=== PATIENT | female | born 1945 | race Caucasian/White ===

== ENCOUNTER → 2020-11-06 | Outpatient (CLI) | payer MEDICARE ==
--- NOTE | 2020-11-06 17:21 | US ---
EXAMINATION TYPE: US transvaginal DATE OF EXAM: 11/06/2020 COMPARISON: NONE CLINICAL HISTORY: 75-year-old female N95.0 postmenopausal bleeding. Pt states on/off vaginal bleeding , no bleeding past month TECHNIQUE: Transvaginal (TV) and Transabdominal (TA) . Transabdominal sonographic images of the pel vis were acquired. Transvaginal sonographic images were medically necessary to better assess the fol lowing anatomy: Entire pelvis Date of LMP: Age 51 FINDINGS: EXAM MEASUREMENTS: Uterus: 7.3 x 3.1 x 2.8 cm Endometrial Stripe: 1.9 cm Plant Operator Helper notes:Morbidly obese pt, limited visualization 1. Uterus: Anteverted with slightly heterogeneous myometrium 2. Endometrium: Prominently Thickened 3. Right Ovary: Surgically absent 4. Left Ovary: Obscured by overlying bowel gas 5. Bilateral Adnexa: wnl 6. Posterior cul-de-sac: wnl IMPRESSION: Prominently thickened myometrium up to 1.9 cm, abnormal in a postmenopausal female. Endometrial hyper plasia, polyps, and endometrial carcinoma are differential considerations. Recommend ROTARY SHEAR OPERATOR referral for further evaluation.
== END | disposition home or self-care (01) ==
LOC: RADUSWWP 12:58
PROVIDERS: ATTEND Family Medicine
DX: N85.8 Other specified noninflammatory disorders of uterus (principal)
CPT/HCPCS: 76830

== ENCOUNTER 2020-11-26 17:30 | Observation (INO) | payer MEDICARE ==
[2020-11-26] MEDS ORDERED: NITROGLYCERIN OINT 1 INCH/GM PACKET TOPICAL STA (18:00)
[2020-11-26] MEDS ORDERED: ASPIRIN 81 MG PO STA (18:00)
--- NOTE | 2020-11-26 18:03 | ED ---
General Adult HPI - General Chief complaint: Chest Pain Stated complaint: Coughing/sob/chest pain Time Seen by Provider: 11/26/20 17:30 Source: patient, family, RN notes reviewed, old records reviewed Mode of arrival: wheelchair Limitations: no limitations - History of Present Illness Initial comments: This is a 75-year-old female presents emergency department stating that for one week she's been feeling extremely tired and fatigued. Patient also states during that time she was having chest pain on and off. Patient describes the chest pain is a central heaviness in her chest. Patient denies any cough patient denies any recent fever but states she has had the chills she's had no exposure to COVID that she knows of. Patient denies any abdominal pain patient denies nausea vomiting diarrhea per patient denies any loss of taste or smell. Patient denies any dysuria hematuria urinary frequency. Patient states she has a little bit of shortness of breath. - Related Data Home Medications Medication Instructions Recorded Confirmed Ascorbic Acid [Vitamin C] 500 mg PO DAILY 11/26/20 11/26/20 Aspirin EC [Ecotrin Low Dose] 81 mg PO DAILY 11/26/20 11/26/20 Atorvastatin [Lipitor] 20 mg PO DAILY 11/26/20 11/26/20 Cetirizine HCl [Zyrtec] 10 mg PO DAILY 11/26/20 11/26/20 Cholecalciferol [Vitamin D3 (25 25 mcg PO DAILY 11/26/20 11/26/20 Mcg = 1000 Iu)] Cyanocobalamin (Vitamin B-12) 1,000 mcg PO DAILY 11/26/20 11/26/20 [Vitamin B-12] Famotidine [Pepcid] 40 mg PO DAILY 11/26/20 11/26/20 Laxative 5 mg PO DAILY PRN 11/26/20 11/26/20 Losartan/Hydrochlorothiazide 1 tab PO DAILY 11/26/20 11/26/20 [Losartan-Hctz 100-12.5 mg Tab] Omeprazole 40 mg PO BID 11/26/20 11/26/20 Venlafaxine HCl [Effexor] 75 mg PO DAILY 11/26/20 11/26/20 Vitamin E 400 unit PO DAILY 11/26/20 11/26/20 amLODIPine [Norvasc] 10 mg PO DAILY 11/26/20 11/26/20 glipiZIDE XL [Glucotrol Xl] 2.5 mg PO BID 11/26/20 11/26/20 sitaGLIPtin [Januvia] 100 mg PO DAILY 11/26/20 11/26/20 Allergies Allergy/AdvReac Type Severity Reaction Status Date / Time adhesive tape Allergy Rash/Hives Verified 11/26/20 18:37 Review of Systems ROS Statement: Those systems with pertinent positive or pertinent negative responses have been documented in the HPI. ROS Other: All systems not noted in ROS Statement are negative. Past Medical History Past Medical History: Diabetes Mellitus, Hypertension, Pneumonia, Renal Disease Additional Past Medical History / Comment(s): hernia History of Any Multi-Drug Resistant Organisms: None Reported Past Surgical History: Adenoidectomy, Cholecystectomy, Orthopedic Surgery, Tonsillectomy Additional Past Surgical History / Comment(s): Lap band, right ankle surgery. Past Psychological History: Anxiety Smoking Status: Never smoker Past Alcohol Use History: None Reported Past Drug Use History: None Reported General Exam - General Exam Comments Initial Comments: GENERAL: Patient is well-developed and well-nourished. Patient is nontoxic and well- hydrated and is in mild distress. ENT: Neck is soft and supple. No significant lymphadenopathy is noted. Oropharynx is clear. Moist mucous membranes. Neck has full range of motion without eliciting any pain. EYES: The sclera were anicteric and conjunctiva were pink and moist. Extraocular movements were intact and pupils were equal round and reactive to light. Eyelids were unremarkable. PULMONARY: Unlabored respirations. Good breath sounds bilaterally. No audible rales rhonchi or wheezing was noted. CARDIOVASCULAR: There is a regular rate and rhythm without any murmurs gallops or rubs. ABDOMEN: Soft and nontender with normal bowel sounds. SKIN: Skin is clear with no lesions or rashes and otherwise unremarkable. NEUROLOGIC: Patient is alert and oriented x3. Cranial nerves II through XII are grossly intact. Motor and sensory are also intact. Normal speech, volume and content. Symmetrical smile. MUSCULOSKELETAL: Normal extremities with adequate strength and full range of motion. No lower extremity swelling or edema. No calf tenderness. LYMPHATICS: No significant lymphadenopathy is noted PSYCHIATRIC: Normal psychiatric evaluation. Limitations: no limitations Course Vital Signs 11/26/20 17:32 Temperature 98.3 F Pulse Rate 78 Respiratory 18 Rate Blood Pressure 122/77 O2 Sat by Pulse 96 Oximetry Medical Decision Making - Medical Decision Making EKG shows normal sinus rhythm at 75 bpm SC interval 162 QRS is 82 QT interval 380 QTC is 424. Patient's EKG shows no ST segment elevation or depression. EKG shows normal sinus rhythm at 75 bpm SC interval is 162 QRS is 82 QT interval 380 QTC is 424. Patient's EKG shows no ST segment elevation or depression. Chest x-ray shows no acute abnormality. Urine showed potential urinary tract infection so I gave the patient a gram of Rocephin. Because the patient was complaining of chest pain I admitted the patient wrote admitting orders. I spoke with Dr. Ramirez he agreed to admission I consult cardiology continued the Rocephin. - Lab Data Result diagrams: 11/26/20 18:13 11/26/20 18:13 Lab Results 11/26/20 11/26/20 11/26/20 Range/Units 18:13 18:13 18:13 WBC 9.9 (3.8-10.6) k/uL RBC 4.63 (3.80-5.40) m/uL Hgb 14.0 (11.4-16.0) gm/dL Hct 41.6 (34.0-46.0) % MCV 90.0 (80.0-100.0) fL MCH 30.2 (25.0-35.0) pg MCHC 33.5 (31.0-37.0) g/dL RDW 14.0 (11.5-15.5) % Plt Count 280 (150-450) k/uL MPV 6.7 Neutrophils % 66 % Lymphocytes % 22 % Monocytes % 6 % Eosinophils % 3 % Basophils % 1 % Neutrophils # 6.5 (1.3-7.7) k/uL Lymphocytes # 2.2 (1.0-4.8) k/uL Monocytes # 0.6 (0-1.0) k/uL Eosinophils # 0.3 (0-0.7) k/uL Basophils # 0.1 (0-0.2) k/uL PT 10.4 (9.0-12.0) sec INR 1.0 (<1.2) APTT 21.5 L (22.0-30.0) sec Sodium 136 L (137-145) mmol/L Potassium 3.6 (3.5-5.1) mmol/L Chloride 96 L (98-107) mmol/L Carbon Dioxide 28 (22-30) mmol/L Anion Gap 12 mmol/L BUN 17 (7-17) mg/dL Creatinine 1.36 H (0.52-1.04) mg/dL Est GFR (CKD-EPI)AfAm 44 (>60 ml/min/1.73 sqM) Est GFR (CKD-EPI)NonAf 38 (>60 ml/min/1.73 sqM) Glucose 145 H (74-99) mg/dL Calcium 11.3 H (8.4-10.2) mg/dL Magnesium 1.3 L (1.6-2.3) mg/dL Total Bilirubin 0.6 (0.2-1.3) mg/dL AST 37 H (14-36) U/L ALT 37 H (4-34) U/L Alkaline Phosphatase 90 (38-126) U/L Troponin I (0.000-0.034) ng/mL Total Protein 7.2 (6.3-8.2) g/dL Albumin 4.3 (3.5-5.0) g/dL Urine Color Urine Appearance (Clear) Urine pH (5.0-8.0) Ur Specific [place] (1.001-1.035) Urine Protein (Negative) Urine Glucose (UA) (Negative) Urine Ketones (Negative) Urine Blood (Negative) Urine Nitrite (Negative) Urine Bilirubin (Negative) Urine Urobilinogen (<2.0) mg/dL Ur Leukocyte Esterase (Negative) Urine WBC (0-5) /hpf Ur Squamous Epith Cells (0-4) /hpf Urine Bacteria (None) /hpf Hyaline Casts (0-2) /lpf Urine Mucus (None) /hpf Coronavirus (PCR) (Not Detectd) 11/26/20 11/26/20 11/26/20 Range/Units 18:13 18:13 19:47 WBC (3.8-10.6) k/uL RBC (3.80-5.40) m/uL Hgb (11.4-16.0) gm/dL Hct (34.0-46.0) % MCV (80.0-100.0) fL MCH (25.0-35.0) pg MCHC (31.0-37.0) g/dL RDW (11.5-15.5) % Plt Count (150-450) k/uL MPV Neutrophils % % Lymphocytes % % Monocytes % % Eosinophils % % Basophils % % Neutrophils # (1.3-7.7) k/uL Lymphocytes # (1.0-4.8) k/uL Monocytes # (0-1.0) k/uL Eosinophils # (0-0.7) k/uL Basophils # (0-0.2) k/uL PT (9.0-12.0) sec INR (<1.2) APTT (22.0-30.0) sec Sodium (137-145) mmol/L Potassium (3.5-5.1) mmol/L Chloride (98-107) mmol/L Carbon Dioxide (22-30) mmol/L Anion Gap mmol/L BUN (7-17) mg/dL Creatinine (0.52-1.04) mg/dL Est GFR (CKD-EPI)AfAm (>60 ml/min/1.73 sqM) Est GFR (CKD-EPI)NonAf (>60 ml/min/1.73 sqM) Glucose (74-99) mg/dL Calcium (8.4-10.2) mg/dL Magnesium (1.6-2.3) mg/dL Total Bilirubin (0.2-1.3) mg/dL AST (14-36) U/L ALT (4-34) U/L Alkaline Phosphatase (38-126) U/L Troponin I <0.012 (0.000-0.034) ng/mL Total Protein (6.3-8.2) g/dL Albumin (3.5-5.0) g/dL Urine Color Yellow Urine Appearance Clear (Clear) Urine pH 6.5 (5.0-8.0) Ur Specific [place] 1.014 (1.001-1.035) Urine Protein Negative (Negative) Urine Glucose (UA) Negative (Negative) Urine Ketones Negative (Negative) Urine Blood Negative (Negative) Urine Nitrite Negative (Negative) Urine Bilirubin Negative (Negative) Urine Urobilinogen <2.0 (<2.0) mg/dL Ur Leukocyte Esterase Large H (Negative) Urine WBC 11 H (0-5) /hpf Ur Squamous Epith Cells 4 (0-4) /hpf Urine Bacteria Rare H (None) /hpf Hyaline Casts 11 H (0-2) /lpf Urine Mucus Rare H (None) /hpf Coronavirus (PCR) Not Detected (Not Detectd) Disposition Clinical Impression: Hypomagnesemia, Hypercalcemia, Chest pain, Urinary tract infection Disposition: ADMITTED IP TO THIS HOSP Referrals: Demetri Arteaga DO [Primary Care Provider] - 1-2 days Time of Disposition: 20:11
[2020-11-26 18:22] LABS: Basophils # (A) 0.1 k/uL (0-0.2); Basophils % (A) 1 %; Eosinophils # (A) 0.3 k/uL (0-0.7); Eosinophils % (A) 3 %; HCT 41.6 % (34.0-46.0); Lymphocytes # (A) 2.2 k/uL (1.0-4.8); Lymphocytes % (A) 22 %; MCH 30.2 pg (25.0-35.0); MCHC 33.5 g/dL (31.0-37.0); Mean Platelet Volume 6.7; Monocytes # (A) 0.6 k/uL (0-1.0); Monocytes % (A) 6 %; Neutrophils # (A) 6.5 k/uL (1.3-7.7); Neutrophils % (A) 66 %; Platelet Count 280 k/uL (150-450); RBC 4.63 m/uL (3.80-5.40); WBC 9.9 k/uL (3.8-10.6)
[2020-11-26 18:30] LABS: Albumin 4.3 g/dL (3.5-5.0); Calcium 11.3 mg/dL (8.4-10.2); Magnesium 1.3 mg/dL (1.6-2.3); Potassium 3.6 mmol/L (3.5-5.1); Total Bilirubin 0.6 mg/dL (0.2-1.3); Total Protein 7.2 g/dL (6.3-8.2)
[2020-11-26 18:39] LABS: Partial Thromboplastin Time 21.5 sec (22.0-30.0); Prothrombin Time 10.4 sec (9.0-12.0)
--- NOTE | 2020-11-26 19:19 | XR ---
EXAMINATION TYPE: XR chest 2V DATE OF EXAM: 11/26/2020 COMPARISON: NONE HISTORY: Cough. Chest pain TECHNIQUE: FINDINGS: Heart and mediastinum are normal. Lungs are clear. Diaphragm is normal. Bony thorax is inta ct. There are chest leads. There is some spurring in the thoracic spine. IMPRESSION: No cardiopulmonary disease.
[2020-11-26] MEDS: MAGNESIUM SULFATE-D5W PMX 1 GM in DEXTROSE/WATER 1 100ML.BAG IVPB SCH ×2 (19:53→21:00)
[2020-11-26 20:07] LABS: Appearance,Urine Clear (Clear); Bacteria,Urine Rare /hpf; Bilirubin,Urine Negative (Negative); Blood,Urine Negative (Negative); Color,Urine Yellow; Glucose,Urine (UA) Negative (Negative); Hyaline Casts,Urine 11 /lpf (0-2); Ketones,Urine Negative (Negative); Leukocyte Esterase,Urine Large (Negative); Mucus,Urine Rare /hpf; Nitrite,Urine Negative (Negative); PH, Urine 6.5 (5.0-8.0); Protein,Urine Negative (Negative); Specific Gravity,Urine 1.014 (1.001-1.035); Squamous Epithelial Cell,Urine 4 /hpf (0-4); Urobilinogen,Urine <2.0 mg/dL (<2.0); WBC,Urine 11 /hpf (0-5)
[2020-11-26] MEDS ORDERED: cefTRIAXone IN SWFI 1,000 MG/10 ML SYRINGE IVP STA (20:10)
[2020-11-26] MEDS ORDERED: NITROGLYCERIN SL TABS 0.4 MG TAB SUBLINGUAL PRN (20:17)
[2020-11-26] MEDS: NITROGLYCERIN OINT 1 INCH/GM PACKET TOPICAL SCH (23:06)
[2020-11-27 00:11] LABS: Cholesterol 138 mg/dL (<200); HDL Cholesterol 53 mg/dL (40-60); LDL Cholesterol,Calculated 62 mg/dL (0-99); Triglycerides 114 mg/dL (<150)
[2020-11-27 05:57] LABS: Glucose,Whole Blood 111 mg/dL (75-99)
[2020-11-27] MEDS: NITROGLYCERIN OINT 1 INCH/GM PACKET TOPICAL SCH (06:08)
[2020-11-27 08:18] VITALS: RESP 18
[2020-11-27] MEDS ORDERED: DOBUTamine DRIP for NUC MED 500 MG in DEXTROSE/WATER 1 250ML.BAG IV PRN (08:54)
[2020-11-27] MEDS ORDERED: LOSARTAN 50 MG TAB PO SCH ×2 (09:00)
[2020-11-27] MEDS ORDERED: hydroCHLOROthiazide 12.5 MG CAP PO SCH (09:00)
[2020-11-27] MEDS ORDERED: ATORVASTATIN 20 MG TAB PO SCH (09:00)
[2020-11-27] MEDS ORDERED: ASPIRIN 81 MG PO SCH (09:00)
[2020-11-27] MEDS ORDERED: ASPIRIN 325 MG TAB PO SCH (09:00)
[2020-11-27] MEDS ORDERED: SODIUM CHLORIDE 0.9% 1,000 ML IV SCH (10:15)
[2020-11-27] MEDS ORDERED: MAGNESIUM SULFATE-D5W PMX 1 GM in DEXTROSE/WATER 1 100ML.BAG IVPB ONE (10:15)
[2020-11-27 10:19] LABS: Calcium 10.3 mg/dL (8.4-10.2)
--- NOTE | 2020-11-27 11:00 | ECHOF ---
Referral Reason:cp MEASUREMENTS -------- HEIGHT: 160.0 cm WEIGHT: 106.6 kg BP: IVSd: 0.9 cm (0.6 - 1.1) LVIDd: 2.9 cm (3.9 - 5.3) LVPWd: 1.3 cm (0.6 - 1.1) IVSs: 1.2 cm LVIDs: 1.8 cm LVPWs: 1.2 cm LAESV Index (A-L): 12.81 ml/m Ao Diam: 2.8 cm (2.0 - 3.7) AV Cusp: 1.1 cm (1.5 - 2.6) LA Diam: 3.0 cm (2.7 - 3.8) MV EXCURSION: 13.883 mm (> 18.000) MV EF SLOPE: 118 mm/s (70 - 150) EPSS: 0.4 cm MV E Fred: 0.83 m/s MV DecT: 282 ms MV A Fred: 1.26 m/s MV E/A Ratio: 0.66 AV maxP.05 mmHg AV meanP.40 mmHg RAP: 5.00 mmHg RVSP: 12.70 mmHg FINDINGS -------- This was a technically difficult study with suboptimal views. The left ventricular size is normal. There is mild concentric left ventricular hypertrophy. Overa ll left ventricular systolic function is normal with, an EF between 55 - 60 %. Normal LAP Grade 1 D iastolic Dysfunction. The right ventricle is normal in size. The left atrial size is normal. Normal LA size by volume 22+/-6 ml/m2. The right atrial size is normal. Lumason used Aortic valve is trileaflet and is moderately thickened. There is moderate aortic stenosis present. Peak/mean gradient across the Aortic Valve is 26.05mmHg / 19.40mmHg. The mitral valve is normal. There is trace mitral regurgitation. The tricuspid valve appears structurally normal. Trace tricuspid regurgitation present. Right foster tricular systolic pressure is normal at < 35 mmHg. Pulmonic valve appears structurally normal. The aortic root size is normal. IVC Not well visulized. There is no pericardial effusion. CONCLUSIONS -------- 1. The left ventricular size is normal. 2. There is mild concentric left ventricular hypertrophy. 3. Overall left ventricular systolic function is normal with, an EF between 55 - 60 %. 4. Normal LAP Grade 1 Diastolic Dysfunction. 5. Aortic valve is trileaflet and is moderately thickened. 6. There is moderate aortic stenosis present. 7. Peak/mean gradient across the Aortic Valve is 26.05mmHg / 19.40mmHg. 8. There is trace mitral regurgitation. 9. Trace tricuspid regurgitation present. 10. There is no pericardial effusion. PARTS PROCESSOR: Marycarmen Strickland RDCS
--- NOTE | 2020-11-27 11:40 | P.CRDCN ---
History of Present Illness History of present illness: HISTORY OF PRESENTING ILLNESS This is a pleasant 75-year-old female past medical history significant for hypertension, diabetes mellitus and dyslipidemia. She denies prior history of coronary artery disease and does not follow in the office with a medicare insurance specialist. We have been asked to see in consultation for chest pain. She states for the past 5 days she has been experiencing a heavy sensation in the mid-sternal region that is worse with breathing or any activity. The pain has been mostly intermittent until the last 2 days it was more constant. She is also experiencing a sharp pain in the right anterior chest intermittently not associated with breathing but more so when she coughs. She has been coughing all weekend with no significant sputum production. She feels like she did in the past when she was diagnosed with pneumonia, however chest xray clear. She also describes some shortness of breath, nausea and increased fatigue. Currently she is chest pain free. DIAGNOSTICS EKG reveals sinus mechanism with no acute ST or T wave abnormalities noted. Telemetry tracings indicate persistent sinus mechanism. Chest xray negative for an acute cardiopulmonary process. Laboratory reviewed, CBC unremarkable, d-dimer 2.25, sodium 137, potassium 1.43, magnesium 1.3, cardiac enzymes negative 3, LDL 62. Current cardiac medications include amlodipine 10 mg daily, losartan/hyd rochlorothiazide 100/12.5 mg daily, atorvastatin 20 mg daily and aspirin 81 mg daily. REVIEW OF SYSTEMS At the time of my exam: CONSTITUTIONAL: Denies fever or chills. CARDIOVASCULAR: Denies chest pain, shortness of breath, orthopnea, PND or palpitations. RESPIRATORY: Denies cough. GASTROINTESTINAL: Denies abdominal pain, diarrhea, constipation, nausea or vomiting. MUSCULOSKELETAL: Denies myalgias. NEUROLOGIC: Denies numbness, tingling, headacbe or weakness. ENDOCRINE: Denies fatigue, weight change, polydipsia or polyurina. GENITOURINARY: Denies burning, hematuria or urgency with micturation. HEMATOLOGIC: Denies history of anemia or bleeding. PHYSICAL EXAMINATION Blood pressure 121/70 heart rate 84 afebrile and maintaining oxygen saturation on room air. CONSTITUTIONAL: No apparent distress. HEENT: Head is normocephalic. Pupils are equal, round. Sclerae anicteric. Mucous membranes of the mouth are moist. No JVD. No carotid bruit. CHEST EXAMINATION: Lungs are clear to auscultation. No chest wall tenderness is noted on palpation or with deep breathing. HEART EXAMINATION: Regular rate and rhythm. S1, S2 heard. Systolic ejection murmur at the base, no gallops or rub. ABDOMEN: Soft, nontender. Positive bowel sounds. EXTREMITIES: 2+ peripheral pulses, no lower extremity edema and no calf tenderness. NEUROLOGIC EXAMINATION: Patient is awake, alert and oriented x3. ASSESSMENT Chest pain, pleuritic at times and exertional at times Hypomagnesemia Acute kidney injury Hypertension Diabetes mellitus Dyslipidemia PLAN Check d-dimer and VQ scan is abnormal. Obtain 2D echocardiogram and doppler study to assess cardiac structure and function. Perform dobutamine stress echo after evaluation of aortic valve if not severe . Resume losartan and atorvastatin. Hold hydrochlorothiazide due to JOSE and hold amlodipine due to borderline blood pressures. Magnesium has been replaced, repeat level this morning. Further recommendations to follow based on clinical course. Thank you kindly for this consultation. Nurse Practitioner note has been reviewed, I agree with a documented findings and plan of care. Patient was seen and examined. Past Medical History Past Medical History: Diabetes Mellitus, Hypertension, Osteoarthritis (OA), Pneumonia, Renal Disease Additional Past Medical History / Comment(s): hernia, chrons History of Any Multi-Drug Resistant Organisms: None Reported Past Surgical History: Adenoidectomy, Cholecystectomy, Orthopedic Surgery, Tonsillectomy Additional Past Surgical History / Comment(s): Lap band, right ankle surgery. Past Anesthesia/Blood Transfusion Reactions: No Reported Reaction Past Psychological History: Anxiety Smoking Status: Never smoker Past Alcohol Use History: None Reported Past Drug Use History: None Reported Medications and Allergies Home Medications Medication Instructions Recorded Confirmed Type Ascorbic Acid [Vitamin C] 500 mg PO DAILY 11/26/20 11/26/20 History Aspirin EC [Ecotrin Low Dose] 81 mg PO DAILY 11/26/20 11/26/20 History Atorvastatin [Lipitor] 20 mg PO DAILY 11/26/20 11/26/20 History Cetirizine HCl [Zyrtec] 10 mg PO DAILY 11/26/20 11/26/20 History Cholecalciferol [Vitamin D3 (25 25 mcg PO DAILY 11/26/20 11/26/20 History Mcg = 1000 Iu)] Cyanocobalamin (Vitamin B-12) 1,000 mcg PO DAILY 11/26/20 11/26/20 History [Vitamin B-12] Famotidine [Pepcid] 40 mg PO DAILY 11/26/20 11/26/20 History Laxative 5 mg PO DAILY PRN 11/26/20 11/26/20 History Losartan/Hydrochlorothiazide 1 tab PO DAILY 11/26/20 11/26/20 History [Losartan-Hctz 100-12.5 mg Tab] Omeprazole 40 mg PO BID 11/26/20 11/26/20 History Venlafaxine HCl [Effexor] 75 mg PO DAILY 11/26/20 11/26/20 History Vitamin E 400 unit PO DAILY 11/26/20 11/26/20 History amLODIPine [Norvasc] 10 mg PO DAILY 11/26/20 11/26/20 History glipiZIDE XL [Glucotrol Xl] 2.5 mg PO BID 11/26/20 11/26/20 History sitaGLIPtin [Januvia] 100 mg PO DAILY 11/26/20 11/26/20 History Allergies Allergy/AdvReac Type Severity Reaction Status Date / Time adhesive tape Allergy Rash/Hives Verified 11/26/20 18:37 Physical Exam Vitals: Vital Signs Temp Pulse Pulse Resp BP BP Pulse Ox 11/27/20 03:42 79 16 128/72 95 11/27/20 01:26 70 18 11/26/20 23:20 70 18 108/61 93 L 11/26/20 21:14 80 22 120/62 94 L 11/26/20 20:33 73 18 126/70 97 11/26/20 17:32 98.3 F 78 18 122/77 96 Intake and Output 11/26/20 11/27/20 11/27/20 22:59 06:59 14:59 Other: Voiding Method Toilet # Voids 1 Weight 105.233 kg 106.7 kg Results 11/26/20 18:13 11/27/20 08:25 Cardiac Enzymes 11/26/20 11/26/20 11/26/20 Range/Units 18:13 18:13 20:45 AST 37 H (14-36) U/L Troponin I <0.012 <0.012 (0.000-0.034) ng/mL 11/26/20 Range/Units 23:41 AST (14-36) U/L Troponin I <0.012 (0.000-0.034) ng/mL Coagulation 11/26/20 Range/Units 18:13 PT 10.4 (9.0-12.0) sec APTT 21.5 L (22.0-30.0) sec Lipids 11/26/20 Range/Units 23:41 Triglycerides 114 (<150) mg/dL Cholesterol 138 (<200) mg/dL HDL Cholesterol 53 (40-60) mg/dL CBC 11/26/20 Range/Units 18:13 WBC 9.9 (3.8-10.6) k/uL RBC 4.63 (3.80-5.40) m/uL Hgb 14.0 (11.4-16.0) gm/dL Hct 41.6 (34.0-46.0) % Plt Count 280 (150-450) k/uL Comprehensive Metabolic Panel 11/26/20 Range/Units 18:13 Sodium 136 L (137-145) mmol/L Potassium 3.6 (3.5-5.1) mmol/L Chloride 96 L (98-107) mmol/L Carbon Dioxide 28 (22-30) mmol/L BUN 17 (7-17) mg/dL Creatinine 1.36 H (0.52-1.04) mg/dL Glucose 145 H (74-99) mg/dL Calcium 11.3 H (8.4-10.2) mg/dL AST 37 H (14-36) U/L ALT 37 H (4-34) U/L Alkaline Phosphatase 90 (38-126) U/L Total Protein 7.2 (6.3-8.2) g/dL Albumin 4.3 (3.5-5.0) g/dL Current Medications Generic Name Dose Route Start Last Admin Trade Name Freq PRN Reason Stop Dose Admin Aspirin 325 mg 11/27/20 09:00 Aspirin 325 Mg Tab PO DAILY IMANI Nitroglycerin 0.4 mg 11/26/20 20:17 Nitroglycerin Sl Tabs 0.4 Mg Tab SUBLINGUAL Q5M PRN Chest Pain Nitroglycerin 1 inch 11/27/20 00:00 11/27/20 06:08 Nitroglycerin Oint 1 Inch/Gm Packet TOPICAL 1 inch Q6HR IMANI Administration Intake and Output 11/26/20 11/27/20 11/27/20 22:59 06:59 14:59 Other: Voiding Method Toilet # Voids 1 Weight 105.233 kg 106.7 kg 11/26/20 18:13 11/26/20 18:13
--- NOTE | 2020-11-27 11:55 | P.STRESS ---
- Stress Test Note Stress Test Results/Findings: Exam Performed: dobutamine stress echo with con Exam Date: 11/27/20 Reason for Exam: Chest Pain Height: 5 ft 3 in Weight: 106.7 kg Protocol: Dobutamine Stage: 3 Duration of Exercise: 8:34 Resting Heart Rate: 74 Resting Blood Pressure: 140/64 Maximum Achieved Heart Rate: 131 Maximum Achieved Blood Pressure: 140/64 85% PMHR: 124 100% PMHR: 146 METS: na Technologist Comment: Stress Test Results/Findings: This is a 75-year-old female with history of hypertension, diabetes and hypercholesterolemia being evaluated for symptoms of chest pain and shortness of breath. Stress data: Baseline EKG showed sinus rhythm with normal [place] interval and QRS duration. Blood pressure at rest is 140/64 with pulse rate of 74. Patient was initiated on standing dose of dobutamine at 10 mics and was titrated to 30 mics, achieving a maximum heart rate of 131 with a blood pressure 120/63. EKGs taken during and after the dobutamine infusion did not reveal any significant changes to suggest ischemia. Patient did not experience any chest pain. Echo data: Baseline echo images show normal wall motion and thickening. Images taken at the low dose and high dose dobutamine showed progressive augmentation of wall motion and thickening. Final impression: #1. Negative dobutamine stress test #2. Negative dobutamine stress echo.
--- NOTE | 2020-11-27 12:55 | ECHOS ---
Stress Test Results/Findings: Exam Performed: dobutamine stress echo with con Exam Date: 11/27/20 Reason for Exam: Chest Pain Height: 5 ft 3 in Weight: 106.7 kg Protocol: Dobutamine Stage: 3 Duration of Exercise: 8:34 Resting Heart Rate: 74 Resting Blood Pressure: 140/64 Maximum Achieved Heart Rate: 131 Maximum Achieved Blood Pressure: 140/64 85% PMHR: 124 100% PMHR: 146 METS: na Technologist Comment: Stress Test Results/Findings: This is a 75-year-old female with history of hypertension, diabetes and hypercholesterolemia being evaluated for symptoms of chest pain and shortness of breath. Stress data: Baseline EKG showed sinus rhythm with normal [place] interval and QRS duration. Blood pressure at rest is 140/64 with pulse rate of 74. Patient was initiated on standing dose of dobutamine at 10 mics and was titrated to 30 mics, achieving a maximum heart rate of 131 with a blood pressure 120/63. EKGs taken during and after the dobutamine infusion did not reveal any significant changes to suggest ischemia. Patient did not experience any chest pain. Echo data: Baseline echo images show normal wall motion and thickening. Images taken at the low dose and high dose dobutamine showed progressive augmentation of wall motion and thickening. Final impression: #1. Negative dobutamine stress test #2. Negative dobutamine stress echo. [facility]
[2020-11-27 13:24] VITALS: BP 140/72; PULSE 75; TEMP 98
--- NOTE | 2020-11-27 13:26 | NM ---
EXAMINATION TYPE: NM pul vent and perfuse DATE OF EXAM: 11/27/2020 COMPARISON: Chest x-ray 11/26/2020 HISTORY: Chest pain, difficulty breathing and cough, wheezing TECHNIQUE: Utilizing inhalation of 35.8 mCi Tc 99m DTPA aerosol and intravenous injection of 4.93 mC i of Tc 99m MAA, ventilation and perfusion images are acquired post injection in multiple projections . FINDINGS: Normal radiotracer distribution is noted in the lungs. There is no evidence of mismatched defects. IMPRESSION: Low probability for pulmonary embolus
--- NOTE | 2020-11-27 14:34 | P.HPIM ---
History of Present Illness 75-year-old female past medical history significant for hypertension, diabetes mellitus and dyslipidemia. She denies prior history of coronary artery disease and does not follow in the office with a natural resources instructor. We have been asked to see in consultation for chest pain. She states for the past 5 days she has been experiencing a heavy sensation in the mid-sternal region that is worse with breathing or any activity. The pain has been mostly intermittent until the last 2 days it was more constant. She is also experiencing a sharp pain in the right anterior chest intermittently not associated with breathing but more so when she coughs. She has been coughing all weekend with no significant sputum production. She feels like she did in the past when she was diagnosed with pneumonia, however chest xray clear. She also describes some shortness of breath, nausea and increased fatigue. Currently she is chest pain free. Patient the had a stress test after ruling out acute coronary syndromes stress test is negative. Patient has an elevated d-dimer because of which obtained a VQ scan which did not show any significant ventilation perfusion mismatches and very low probability of pulmonary embolism patient the chest pain is either musculoskeletal or gastroesophageal reflux disease patient is already on the proton pump inhibitor. Patient will be discharged today patient is chest pain- free at this time. Review of Systems REVIEW OF SYSTEMS: CONSTITUTIONAL: No fever, no malaise, no fatigue. HEENT: No recent visual problems or hearing problems. Denied any sore throat. CARDIOVASCULAR: No orthopnea, PND, no palpitations, no syncope. PULMONARY: No shortness of breath, no cough, no hemoptysis. GASTROINTESTINAL: No diarrhea, no nausea, no vomiting, no abdominal pain. NEUROLOGICAL: No headaches, no weakness, no numbness. HEMATOLOGICAL: Denies any bleeding or petechiae. GENITOURINARY: Denies any burning micturition, frequency, or urgency. MUSCULOSKELETAL/RHEUMATOLOGICAL: Denies any joint pain, swelling, or any muscle pain. ENDOCRINE: Denies any polyuria or polydipsia. The rest of the 14-point review of systems is negative. Past Medical History Past Medical History: Diabetes Mellitus, Hypertension, Osteoarthritis (OA), Pneu monia, Renal Disease Additional Past Medical History / Comment(s): hernia, chrons History of Any Multi-Drug Resistant Organisms: None Reported Past Surgical History: Adenoidectomy, Cholecystectomy, Orthopedic Surgery, Tonsillectomy Additional Past Surgical History / Comment(s): Lap band, right ankle surgery. Past Anesthesia/Blood Transfusion Reactions: No Reported Reaction Past Psychological History: Anxiety Smoking Status: Never smoker Past Alcohol Use History: None Reported Past Drug Use History: None Reported Medications and Allergies Home Medications Medication Instructions Recorded Confirmed Type Ascorbic Acid [Vitamin C] 500 mg PO DAILY 11/26/20 11/26/20 History Aspirin EC [Ecotrin Low Dose] 81 mg PO DAILY 11/26/20 11/26/20 History Atorvastatin [Lipitor] 20 mg PO DAILY 11/26/20 11/26/20 History Cetirizine HCl [Zyrtec] 10 mg PO DAILY 11/26/20 11/26/20 History Cholecalciferol [Vitamin D3 (25 25 mcg PO DAILY 11/26/20 11/26/20 History Mcg = 1000 Iu)] Cyanocobalamin (Vitamin B-12) 1,000 mcg PO DAILY 11/26/20 11/26/20 History [Vitamin B-12] Laxative 5 mg PO DAILY PRN 11/26/20 11/26/20 History Omeprazole 40 mg PO BID 11/26/20 11/26/20 History Venlafaxine HCl [Effexor] 75 mg PO DAILY 11/26/20 11/26/20 History Vitamin E 400 unit PO DAILY 11/26/20 11/26/20 History amLODIPine [Norvasc] 10 mg PO DAILY 11/26/20 11/26/20 History glipiZIDE XL [Glucotrol Xl] 2.5 mg PO BID 11/26/20 11/26/20 History sitaGLIPtin [Januvia] 100 mg PO DAILY 11/26/20 11/26/20 History Losartan [Cozaar] 100 mg PO DAILY #30 tab 11/27/20 Rx Allergies Allergy/AdvReac Type Severity Reaction Status Date / Time adhesive tape Allergy Rash/Hives Verified 11/26/20 18:37 Physical Exam Vitals: Vital Signs Temp Pulse Pulse Resp BP BP Pulse Ox 11/27/20 13:29 75 18 11/27/20 13:23 98.0 F 75 18 140/72 94 L 11/27/20 08:15 98.1 F 84 18 121/70 94 L 11/27/20 08:00 84 18 11/27/20 03:42 79 16 128/72 95 11/27/20 01:26 70 18 11/26/20 23:20 70 18 108/61 93 L 11/26/20 21:14 80 22 120/62 94 L 11/26/20 20:33 73 18 126/70 97 11/26/20 17:32 98.3 F 78 18 122/77 96 Intake and Output 11/26/20 11/27/20 11/27/20 22:59 06:59 14:59 Other: Voiding Method Toilet Toilet # Voids 1 Weight 105.233 kg 106.7 kg 106.7 kg PHYSICAL EXAMINATION: GENERAL: The patient is alert and oriented x3, not in any acute distress. Well developed, well nourished. HEENT: Pupils are round and equally reacting to light. EOMI. No scleral icterus. No conjunctival pallor. Normocephalic, atraumatic. No pharyngeal erythema. No thyromegaly. CARDIOVASCULAR: S1 and S2 present. No murmurs, rubs, or gallops. PULMONARY: Chest is clear to auscultation, no wheezing or crackles. ABDOMEN: Soft, nontender, nondistended, normoactive bowel sounds. No palpable organomegaly. MUSCULOSKELETAL: No joint swelling or deformity. EXTREMITIES: No cyanosis, clubbing, or pedal edema. NEUROLOGICAL: Gross neurological examination did not reveal any focal deficits. SKIN: No rashes. Results CBC & Chem 7: 11/26/20 18:13 11/27/20 08:25 Labs: Abnormal Lab Results - Last 24 Hours (Table) 11/26/20 11/26/20 11/26/20 Range/Units 18:13 18:13 19:47 APTT 21.5 L (22.0-30.0) sec D-Dimer (<0.60) mg/L FEU Sodium 136 L (137-145) mmol/L Chloride 96 L (98-107) mmol/L BUN (7-17) mg/dL Creatinine 1.36 H (0.52-1.04) mg/dL Glucose 145 H (74-99) mg/dL POC Glucose (mg/dL) (75-99) mg/dL Calcium 11.3 H (8.4-10.2) mg/dL Magnesium 1.3 L (1.6-2.3) mg/dL AST 37 H (14-36) U/L ALT 37 H (4-34) U/L Ur Leukocyte Esterase Large H (Negative) Urine WBC 11 H (0-5) /hpf Urine Bacteria Rare H (None) /hpf Hyaline Casts 11 H (0-2) /lpf Urine Mucus Rare H (None) /hpf 11/27/20 11/27/20 11/27/20 Range/Units 05:56 08:25 08:25 APTT (22.0-30.0) sec D-Dimer 2.25 H (<0.60) mg/L FEU Sodium (137-145) mmol/L Chloride 97 L (98-107) mmol/L BUN 18 H (7-17) mg/dL Creatinine 1.43 H (0.52-1.04) mg/dL Glucose 137 H (74-99) mg/dL POC Glucose (mg/dL) 111 H (75-99) mg/dL Calcium 10.3 H (8.4-10.2) mg/dL Magnesium (1.6-2.3) mg/dL AST (14-36) U/L ALT (4-34) U/L Ur Leukocyte Esterase (Negative) Urine WBC (0-5) /hpf Urine Bacteria (None) /hpf Hyaline Casts (0-2) /lpf Urine Mucus (None) /hpf Thrombosis Risk Factor Assmnt - Choose All That Apply Any of the Below Risk Factors Present?: Yes Each Factor Represents 1 point: Swollen legs (current) Other Risk Factors: Yes Each Risk Factor Represents 2 Points: Age 61-74 years Other congenital or acquired thrombophilia - If yes, enter type in comment: No Thrombosis Risk Factor Assessment Total Risk Factor Score: 3 Thrombosis Risk Factor Assessment Level: Moderate Risk Assessment and Plan Plan: -Chest pain: Patient had a negative stress test rule out acute medicine syndromes rule out pulmonary embolism patient probably has musculoskeletal chest pain or gastroesophageal reflux disease will be discharged today hypomagnesemia magnesium will be replaced -Chronic kidney disease secondary to diabetic nephropathy patient creatinine appears to be baseline -Hypertension considering her kidney dysfunction hydrochlorothiazide is not appropriate this will be discontinued and patient will be discharged on losartan instead. Patient will be continued with Norvasc -Mild hyponatremia secondary to hydrochlorothiazide -Type 2 diabetes mellitus: Patient can continue her home regimen -Depression -Gastroesophageal reflux disease or peptic ulcer disease. Patient will be discharged today to follow up with PCP as an outpatient
--- NOTE | 2020-11-27 14:35 | P.DS ---
Providers Date of admission: 11/26/20 20:19 Attending physician: Demetrius Ramirez Consults: 11/26/20 20:17 Consult Physician Urgent Consulting Provider: [facility] Consult Reason/Comments: Chest pain Do you want consulting provider notified?: Yes Primary care physician: Demetri Arteaga [facility] Course: Refer to my history of present illness for further details Plan - Discharge Summary Discharge Rx Participant: No New Discharge Prescriptions: New Losartan [Cozaar] 100 mg PO DAILY #30 tab Continue Vitamin E 400 unit PO DAILY Cyanocobalamin (Vitamin B-12) [Vitamin B-12] 1,000 mcg PO DAILY Cholecalciferol [Vitamin D3 (25 Mcg = 1000 Iu)] 25 mcg PO DAILY Cetirizine HCl [Zyrtec] 10 mg PO DAILY Aspirin EC [Ecotrin Low Dose] 81 mg PO DAILY Ascorbic Acid [Vitamin C] 500 mg PO DAILY sitaGLIPtin [Januvia] 100 mg PO DAILY Omeprazole 40 mg PO BID Atorvastatin [Lipitor] 20 mg PO DAILY glipiZIDE XL [Glucotrol XL] 2.5 mg PO BID amLODIPine [Norvasc] 10 mg PO DAILY Venlafaxine HCl [Effexor] 75 mg PO DAILY Laxative 5 mg PO DAILY PRN PRN Reason: Constipation Discontinued Famotidine [Pepcid] 40 mg PO DAILY Losartan/Hydrochlorothiazide [Losartan-Hctz 100-12.5 mg Tab] 1 tab PO DAILY Discharge Medication List Ascorbic Acid [Vitamin C] 500 mg PO DAILY 11/26/20 [History] Aspirin EC [Ecotrin Low Dose] 81 mg PO DAILY 11/26/20 [History] Atorvastatin [Lipitor] 20 mg PO DAILY 11/26/20 [History] Cetirizine HCl [Zyrtec] 10 mg PO DAILY 11/26/20 [History] Cholecalciferol [Vitamin D3 (25 Mcg = 1000 Iu)] 25 mcg PO DAILY 11/26/20 [History] Cyanocobalamin (Vitamin B-12) [Vitamin B-12] 1,000 mcg PO DAILY 11/26/20 [History] Laxative 5 mg PO DAILY PRN 11/26/20 [History] Omeprazole 40 mg PO BID 11/26/20 [History] Venlafaxine HCl [Effexor] 75 mg PO DAILY 11/26/20 [History] Vitamin E 400 unit PO DAILY 11/26/20 [History] amLODIPine [Norvasc] 10 mg PO DAILY 11/26/20 [History] glipiZIDE XL [Glucotrol XL] 2.5 mg PO BID 11/26/20 [History] sitaGLIPtin [Januvia] 100 mg PO DAILY 11/26/20 [History] Losartan [Cozaar] 100 mg PO DAILY #30 tab 11/27/20 [Rx] Follow up Appointment(s)/Referral(s): Demetri Arteaga DO [Primary Care Provider] - 3 Days
[2020-11-27 17:21] LABS: Hemoglobin A1C 8.7 % (4.0-6.0)
[2020-11-27] MEDS ORDERED: PANTOPRAZOLE 40 MG TABLET PO SCH (17:30)
[2020-11-28] MEDS ORDERED: VENLAFAXINE HCL 75 MG TAB PO SCH (09:00)
[2020-11-28] MEDS ORDERED: FAMOTIDINE 20 MG TAB PO SCH (09:00)
[2020-11-28] MEDS ORDERED: LINAGLIPTIN 5 MG TABLET PO SCH (09:00)
[2020-11-28] MEDS ORDERED: ASPIRIN 81 MG PO SCH (09:00)
== END 2020-11-27 15:47 | disposition home or self-care (01) ==
LOC: EC 17:30 → 3SCARD 20:19 → INTOOBSV 20:19 → UNDODISIN 11-27 15:47
PROVIDERS: ADMIT Hospitalist; ATTEND Hospitalist
DX: R07.89 Other chest pain (principal); R07.81 Pleurodynia; E83.42 Hypomagnesemia; N17.9 Acute kidney failure, unspecified; E83.52 Hypercalcemia; I12.9 Hypertensive chronic kidney disease with stage 1 through stage 4 chronic kidney disease, or unspecified chronic kidney disease; N18.9 Chronic kidney disease, unspecified; E87.1 Hypo-osmolality and hyponatremia; T50.2X5A Adverse effect of carbonic-anhydrase inhibitors, benzothiadiazides and other diuretics, initial encounter; E11.22 Type 2 diabetes mellitus with diabetic chronic kidney disease; E11.21 Type 2 diabetes mellitus with diabetic nephropathy; F32.9 Major depressive disorder, single episode, unspecified; R05 Cough; N39.0 Urinary tract infection, site not specified; K46.9 Unspecified abdominal hernia without obstruction or gangrene; F41.9 Anxiety disorder, unspecified; E78.5 Hyperlipidemia, unspecified; Z20.822 Contact with and (suspected) exposure to COVID-19; R06.02 Shortness of breath; R11.0 Nausea; R53.83 Other fatigue; R79.1 Abnormal coagulation profile; M19.90 Unspecified osteoarthritis, unspecified site; K50.90 Crohn's disease, unspecified, without complications; M79.89 Other specified soft tissue disorders; Z79.82 Long term (current) use of aspirin; Z79.899 Other long term (current) drug therapy; Z79.84 Long term (current) use of oral hypoglycemic drugs; Z91.09 Other allergy status, other than to drugs and biological substances; Z87.01 Personal history of pneumonia (recurrent); Z87.448 Personal history of other diseases of urinary system; Z90.89 Acquired absence of other organs; Z90.49 Acquired absence of other specified parts of digestive tract; Z98.890 Other specified postprocedural states; Z98.84 Bariatric surgery status
CPT/HCPCS: 96366; 93005 ×2; 96365; 96375; 99285; 36415; 93306; 85379; 83930; 80061; 80053; 80048; 83735 ×2; 84484; 85025; 85610; 85730; 81001; 87040; 83036; 87635; 71046; 78582; G0378 ×2; C8930; A9540; A9567; J1250; J0696; J3475 ×2; Q9950; 93351

== ENCOUNTER → 2021-02-11 | Outpatient (CLI) | payer MEDICARE ==
[2021-02-11 19:23] LABS: HCT 39.5 % (37.2-46.3); HGB 12.3 g/dL (12.0-15.0); MCH 29.6 pg (27.0-32.0); MCHC 31.1 g/dL (32.0-37.0); MCV 95.2 fL (80.0-97.0); Mean Platelet Volume 9.3 fL (9.5-12.2); Platelet Count 337 X 10*3/uL (140-440); RBC 4.15 X 10*6/uL (4.10-5.20); RDW 13.7 % (11.5-14.5); WBC 8.81 X 10*3/uL (4.50-10.00)
[2021-02-12 01:22] LABS: Ferritin 53.9 ng/mL (10.0-291.0)
[2021-02-12 01:32] LABS: % Iron Saturation 15.87 (12.00-45.00); African American GFR (CKD) 51.6 (60.0-200.0); Albumin 4.2 g/dL (3.80-4.90); Albumin/Globulin Ratio 2.1 (1.60-3.17); Anion Gap 13.4 mmol/L (4.00-12.00); BUN/Creat Ratio 18.33 Ratio (12.00-20.00); Calcium 9.4 mg/dL (8.7-10.3); Carbon Dioxide 23.6 mmol/L (21.6-31.8); Magnesium 2.1 mg/dL (1.5-2.4); Non-African American GFR(CKD) 44.5 (60.0-200.0); Potassium 4.7 mmol/L (3.5-5.5); Total Bilirubin 0.3 mg/dL (0.2-1.2); Total Protein 6.2 g/dL (6.2-8.2); Uric Acid 6.4 mg/dL (2.9-7.7)
[2021-02-12 01:33] LABS: Phosphorus 3.4 mg/dL (2.4-5.1)
[2021-02-12 13:26] LABS: Free Kappa Lt Chain Qnt, Serum 3.94 mg/dL (0.33-1.94)
[2021-02-12 15:27] LABS: Vitamin D, 1, 25-Dihydroxy 41 pg/mL (20 - 79)
[2021-02-13 08:46] LABS: Angiotensin-1 Converting Enz. 29 U/L (8-52)
== END | disposition home or self-care (01) ==
LOC: LABWHC1 11:35
PROVIDERS: ATTEND Internal Medicine
DX: N18.31 Chronic kidney disease, stage 3a (principal); M10.9 Gout, unspecified; N39.0 Urinary tract infection, site not specified; N25.81 Secondary hyperparathyroidism of renal origin; E55.9 Vitamin D deficiency, unspecified; D64.9 Anemia, unspecified
CPT/HCPCS: 36415; 80053; 82164; 82306; 82652; 82728; 83540; 83550; 83735; 83883; 83970; 84100; 84550; 85027; 86334

== ENCOUNTER → 2021-02-21 | Outpatient (CLI) | payer MEDICARE ==
--- NOTE | 2021-02-21 09:13 | CT ---
EXAMINATION TYPE: CT abdomen pelvis wo con DATE OF EXAM: 02/21/2021 HISTORY: Endomertrial CA CT DLP: 1766.70 mGycm. Automated Exposure Control for Dose Reduction was Utilized. TECHNIQUE: CT scan of the abdomen and pelvis is performed with oral but without IV contrast. COMPARISON: NONE FINDINGS: Within the limitations of a non-contrast study, the following observations are made. LUNG BASES: There is 5 mm calcified right lower lobe nodule axial image 2. Some calcification at leve l of the mitral valve. Tiny anterior inferior pericardial effusion LIVER/GB: Cholecystectomy clips. PANCREAS: Moderate to severe generalized fat replaced atrophy in the head and uncinate process. SPLEEN: No significant abnormality is seen. ADRENALS: No significant abnormality is seen. KIDNEYS: Cortical thinning and volume loss to both kidneys. There are round hypodense lesions favorin g thin-walled cysts scattered throughout the left kidney. No hydronephrosis seen bilaterally. Finding s consistent with product of chronic medical renal disease BOWEL: The oral contrast does not reach level of the terminal ileum making evaluation of distal bowel slightly suboptimal. Lap band device identified is satisfactory in position. Distal esophagus shows moderate to severe wall thickening. Diverticulosis throughout the colon most prominent in the left an d sigmoid colon. No CT evidence for acute diverticulitis. GENITAL ORGANS: Anteverted uterus. Ovaries not enlarged. Scattered bilateral pelvic phleboliths. LYMPH NODES: No greater than 1cm abdominal or pelvic lymph nodes are appreciated. OSSEOUS STRUCTURES: Moderate to severe multilevel spurring in the spine. Mild to moderate disc space narrowing and vacuum disc phenomenon at L2-L3 and L3-L4 levels. Multilevel facet arthropathy in the l ower lumbar spine. OTHER: Moderate to large size umbilical hernia containing fat and tiny mesenteric vessels. Moderate c alcified plaque of the aorta extends into branch vessels. IMPRESSION: No suspicious mass or adenopathy to suggest metastatic neoplasm.
== END | disposition home or self-care (01) ==
LOC: RADCTMAIN 06:37
PROVIDERS: ATTEND Obstetrics & Gynecology
DX: C54.1 Malignant neoplasm of endometrium (principal)
CPT/HCPCS: 74176; 82565; 84520

== ENCOUNTER → 2021-03-11 | Outpatient (CLI) | payer MEDICARE | END | disposition home or self-care (01) | LOC: LABWHC1 12:32 | PROVIDERS: ATTEND Obstetrics & Gynecology | DX: Z01.812 Encounter for preprocedural laboratory examination (principal); Z20.822 Contact with and (suspected) exposure to COVID-19 | CPT/HCPCS: U0003; C9803; U0005 ==

== ENCOUNTER 2021-11-05 07:49 | Day surgery (SDC) | payer MEDICARE ==
[2021-10-31 13:39] VITALS: BMI 38.2
[~2021-11-05 07:49] MED LIST: LACTATED RINGERS 1,000 ML IV SCH; LIDOCAINE 1% (10MG/ML) FOR IV START INTRADERMA PRN
[2021-11-05 08:30] VITALS: TEMP 97.6
[2021-11-05 08:46] LABS: Glucose,Whole Blood 122 mg/dL (75-99)
[2021-11-05] MEDS ORDERED: PROPOFOL 10 MG/ML 20 ML VIAL IV ONE (09:00)
--- NOTE | 2021-11-05 09:25 | P.PCN ---
Date of Procedure: 11/05/21 Procedure(s) Performed: Brief history: Patient is a pleasant 76-year-old white female scheduled for an elective upper endoscopy as well as colonoscopy as a part of evaluation of GERD and screening for colon cancer Procedure performed: Esophagogastroduodenoscopy with biopsy Colonoscopy with snare polypectomy. Preoperative diagnosis: GERD Screening for colon cancer Anesthesia: MAC Procedure: After informed consent was obtained from the patient was brought into the endoscopy unit and IV sedation was administered by anesthesia under continuous monitoring. Initially upper endoscopy was done. The Olympus GF 160 video endoscope was inserted inserted into the mouth and esophagus intubated without any difficulty and was gradually advanced into the stomach and duodenum and carefully examined. The bulb of the duodenum appeared normal. In the second part of the duodenum there was a circumferential flat polyp extending at least 2 cm in length and multiple biopsies were done from the polypoid area. The scope was then withdrawn into the stomach adequately insufflated with air and upon careful examination the antrum and body, cardia and fundus appeared normal. The scope was then withdrawn into the esophagus. Small sliding-type well hernia noted. The GE junction was located at 35 cm to the incisors. It appeared regular . Multiple superficial erosions and ulcerations noted in the distal esophagus consistent with LA grade C reflux esophagitis.. Rest of the esophagus appeared normal. Patient tolerated the procedure well. At this time the patient continued to remain sedation. Initial digital rectal examination was normal. Olympus CF 160 video colonoscope was then inserted into the rectum and gradually advanced to the cecum without any difficulty. Careful examination was performed as the scope was gradually being withdrawn. The prep was excellent. The cecum where normal. Ascending colon there was a 56 mm flat polyp that was removed by snare polypectomy. Rest of the, ascending colon, transverse colon, descending colon, sigmoid colon and rectum appeared normal. At her sigmoid diverticulosis seen. Retroflexion was performed in the rectum and no lesions were noted. Patient tolerated the procedure well. Impression: 1. Upper endoscopy revealed circumferential flat duodenal polyp in the second part of the duodenum status post multiple biopsies of a small hiatal hernia and LA grade C reflux esophagitis 2. Colonoscopy revealed 5-6 mm flat ascending colon polyp status post polypectomy and scattered sigmoid diverticulosis. Recommendations: Findings of this examination were discussed with the patient as well as family. She was advised to follow with the biopsy results. She'll be seen in office in one to 2 weeks and based the biopsy results further recommendations will be made. In the meantime she'll be started on omeprazole 20 mg daily and was ad vised to take it twice daily half hour before breakfast and dinnertime and follow antireflux measures.
[2021-11-05 09:53] VITALS: BP 111/64; PULSE 74; RESP 16
== END 2021-11-05 10:14 | disposition home or self-care (01) ==
LOC: ORWHC2ENDO 07:49
PROVIDERS: ATTEND Internal Medicine Gastroenterology
DX: Z12.11 Encounter for screening for malignant neoplasm of colon (principal); D12.2 Benign neoplasm of ascending colon; D13.2 Benign neoplasm of duodenum; K21.00 Gastro-esophageal reflux disease with esophagitis, without bleeding; K22.10 Ulcer of esophagus without bleeding; K57.30 Diverticulosis of large intestine without perforation or abscess without bleeding; E78.5 Hyperlipidemia, unspecified; I10 Essential (primary) hypertension; E11.9 Type 2 diabetes mellitus without complications; N19 Unspecified kidney failure; F41.9 Anxiety disorder, unspecified; F32.A Depression, unspecified; Z79.899 Other long term (current) drug therapy; Z79.82 Long term (current) use of aspirin; Z79.84 Long term (current) use of oral hypoglycemic drugs; Z91.09 Other allergy status, other than to drugs and biological substances
CPT/HCPCS: 45385; 43239; J2704; 88305; 88312

== ENCOUNTER 2023-04-22 06:47 | Day surgery (SDC) | payer MEDICARE ==
[2023-04-22] MEDS ORDERED: LACTATED RINGERS 1,000 ML IV SCH (07:00)
[2023-04-22] MEDS ORDERED: LIDOCAINE 1% (10MG/ML) FOR IV START INTRADERMA PRN (07:00)
[2023-04-22 07:07] VITALS: TEMP 97.3
[2023-04-22 07:17] LABS: Glucose,Whole Blood 118 mg/dL (70-110)
[2023-04-22] MEDS ORDERED: PROPOFOL 10 MG/ML 20 ML VIAL IV ONE (07:59)
[2023-04-22] MEDS ORDERED: LIDOCAINE 2% INJ 20 MG/ML (2 ML VIAL) ONE (07:59)
--- NOTE | 2023-04-22 08:17 | P.PCN ---
Date of Procedure: 04/22/23 Procedure(s) Performed: BRIEF HISTORY: Patient is a 78-year-old, pleasant, white female scheduled for an upper endoscopy as a part of follow-up of large duodenal polyp that was diagnosed in November 2021. She was referred to [facility] which she underwent EGD with endoscopic mucosal resection in 2021 by . She had repeat EGD by Dr. Bishop at [facility] in April 2022 and biopsies revealed focal high-grade dysplasia. She was recommended to have a repeat upper endoscopy at [facility] the patient now moderate to 2 [facility] and hence she is scheduled for an repeat upper endoscopy locally. She is complaining of epigastric discomfort and occasional nausea vomiting. No weight loss. PROCEDURE PERFORMED: Esophagogastroduodenoscopy with biopsy. PREOPERATIVE DIAGNOSIS: Follow-up large duodenal polyp diagnosed in November 2021, status post EGD with endoscopic mucosal resection in April 2022 at [facility]. IV sedation per anesthesia. PROCEDURE: After informed consent was obtained, the patient was brought into the endoscopy unit. IV sedation was administered by Anesthesia under continuous monitoring. Initially the Olympus GIF-140 video endoscope was inserted into the mouth. Esophagus intubated without any difficulty. It was gradually advanced into the stomach and duodenum and carefully examined. The bulb of the duodenum appeared normal. In the second part of the duodenum at the site of previous polypectomy there was a tight stricture identified and around the stricture there was circumferential flat polyp. The scope could not be advanced beyond the stricture. At this time multiple biopsies were done polyp anesthesia. The ampullary orifice was noted adjacent to the polyp with the last preoperative diverticulum that appeared normal. The scope at this time was withdrawn to the stomach, adequately insufflated with air, and upon careful examination, mucosa of the antrum, body, cardia and the fundus appeared normal. The scope was then withdrawn into the esophagus. Small hiatal hernia noted. The GE junction was located at 39 cm from the incisors. The esophagus had erythema and linear erosions consistent with LA grade B reflux esophagitis and the patient tolerated the procedure well. IMPRESSION: 1. 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 2. Small hiatal hernia and LA grade B reflux esophagitis. RECOMMENDATIONS: The findings of this examination were discussed with the patient as well as a family. She was advised to follow with the biopsy results. She'll be seen in office in a week from now and based on that further recommendations will be made..
[2023-04-22 08:38] VITALS: BP 116/64; PULSE 55; RESP 20
== END 2023-04-22 09:09 | disposition home or self-care (01) ==
LOC: ORWHC2ENDO 06:47
PROVIDERS: ATTEND Internal Medicine Gastroenterology
DX: D13.2 Benign neoplasm of duodenum (principal); K31.5 Obstruction of duodenum; I10 Essential (primary) hypertension; E78.5 Hyperlipidemia, unspecified; F17.200 Nicotine dependence, unspecified, uncomplicated; K21.9 Gastro-esophageal reflux disease without esophagitis; Z79.82 Long term (current) use of aspirin; Z79.899 Other long term (current) drug therapy; Z88.8 Allergy status to other drugs, medicaments and biological substances; Z91.048 Other nonmedicinal substance allergy status
CPT/HCPCS: 88305; 43239; J2704; J2001

== ENCOUNTER → 2023-06-23 | Outpatient (CLI) | payer MEDICARE ==
[2023-06-23 12:48] LABS: African American GFR (CKD) 53 (>60 ml/min/1.73 sqM); Blood Urea Nitrogen 30 mg/dL (7-17); Non-African American GFR(CKD) 46 (>60 ml/min/1.73 sqM)
== END | disposition home or self-care (01) ==
LOC: LABWHC1 11:06
PROVIDERS: ATTEND Internal Medicine Gastroenterology
DX: K31.7 Polyp of stomach and duodenum (principal)
CPT/HCPCS: 36415; 82565; 84520